=== PATIENT | female | born 1975 | race Caucasian/White ===

== ENCOUNTER 2020-03-25 08:15 | Emergency (ER) | payer MEDICAID, SELFPAY ==
[2020-03-25 08:29] VITALS: BP 161/78; PULSE 88; RESP 22; TEMP 36.4; O2SAT 98; BMI 26.0
--- NOTE | 2020-03-25 08:33 | XR_ITS ---
EXAMINATION: XR CHEST CLINICAL INFORMATION: Cough for 4 days. Possible pneumonia COMPARISON: CT abdomen 03/04/2017 TECHNIQUE: Frontal view of the chest was obtained. FINDINGS: There is no airspace consolidation, vascular congestion, or effusion. No pleural reaction. There is a calcified granuloma overlying the right anterior sixth rib, in retrospect stable from CT abdomen 03/04/2017. The heart is normal in size. The costophrenic sulci are clear. The hilar and mediastinal contours and bony structures are unremarkable. IMPRESSION: 1. Lungs clear. No acute intrathoracic disease. 2. Incidental calcified granuloma right lower zone similar to CT abdomen 2017.
--- NOTE | 2020-03-25 08:36 | ED_ITS ---
HPI - URI/Sore Throat General Chief Complaint: Upper Respiratory Symptoms Stated Complaint: cold symptoms Time Seen by Provider: 03/25/20 08:33 History of Present Illness HPI Narrative: Patient presents to ED for runny nose, coughing, chills, and bilateral ear pain for 4 days. Patient states no one at home having similar symptoms. 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 patient denies any chest pain or shortness of breath MD elicited complaint: cough, rhinorrhea and sinus pain Onset (ago): day(s) ( Four days) Related Data Previous Rx's Medication Instructions Recorded benzonatate [Tessalon Perles] 100 mg PO TID #15 cap 03/25/20 ibuprofen 400 mg PO Q6H PRN #28 tab 03/25/20 Allergies Allergy/AdvReac Type Severity Reaction Status Date / Time No Known Allergies Allergy Unverified 02/29/20 16:44 [No Known Allergies*] Review of Systems Review of Systems: Yes all other systems are reviewed and are negative Constitutional: Constitutional: Reports chills, Denies daytime sleepiness, Reports fatigue, Denies frequent falls, Denies headache(s), Denies increased appetite, Denies lethargy, Denies malaise, Denies night sweats, Denies snoring, Denies stops breathing during sleep, Denies weakness and Denies weight loss ENT: Reports system reviewed and no additional complaints, except as documented, Denies dysphagia, Denies headache(s), Denies epistaxis and Reports mouth pain Cardiovascular: Cardiovascular: Reports no additional cardiovascular complaints, Denies chest pain, Denies chest pain at rest, Denies chest pain with activity, Denies dyspnea, Denies dyspnea on exertion, Denies orthopnea and Denies paroxysmal nocturnal dyspnea Respiratory: Respiratory: Reports no additional respiratory complaints, Denies dyspnea, Denies dyspnea on exertion and Denies snoring Gastrointestinal: Gastrointestinal: Reports no additional gastrointestinal complaints, Denies abdominal pain, Denies melena, Denies tenesmus, Denies change in stool character, Denies coffee ground emesis, Denies dysphagia, Denies excessive flatus, Denies early satiety, Denies fecal incontinence and Denies diarrhea Musculoskeletal: Musculoskeletal: Reports no additional musculoskeletal complaints Neurologic: Reports system reviewed and no additional complaints, except as documented, Denies behavioral changes, Denies frequent falls, Denies headache(s) and Denies weakness Psychiatric: Psychiatric: Reports no additional psychiatric complaints, Denies anxiety and Denies behavioral changes Endocrine: Endocrine: Reports fatigue PMFSH Past Medical History Medical History (Updated 03/25/20 @ 09:28 by JORDAN Palma) No known health problems Social History Social History Smoking Status: Current every day smoker Smoked in Last 30 Days: Yes Use of substances other than those prescribed or required for medical reasons: No Advance Directives: No Advance Directives Information Provided: Yes Physical Exam Vital Signs: Vital Signs: Vital Signs Temp Pulse Resp BP Pulse Ox 03/25/20 08:29 97.6 F 88 22 H 161/78 H 98 Body Mass Index 26.0 Const: General: cooperative, healthy appearing and comfortable Orientation/consciousness: patient oriented x3 HENMT: Head: Yes normal to inspection Ears: hearing grossly normal bilaterally, external ears normal, TM's normal bilaterally, EAC's normal and no periauricular adenopathy General nose exam: Normal external nose present Face and sinus: Yes normal facial exam and Yes sinuses nontender Mouth: Normal oral and palatal mucosa present Throat: No posterior oropharynx normal, Yes tonsils normal, No abnormal tonsil, No peritonsillar mass, No posterior oropharynx abnormal and No tonsils absent Eyes: General: appearance normal, both eyes and all related structures Neck: Neck: Yes normal visual inspection, Yes full ROM, Yes no lymphadenopathy, Yes no meningeal signs, No positive Brudzinski's sign and No positive Kernig's sign Chest: Chest palpation & inspection: normal inspection of the chest and normal palpation of entire chest wall Resp: Effort & Inspection: normal respiratory effort, able to speak in complete sentences, normal respiratory pattern, no audible wheezes, Actively coughing, no grunting, not labored, no nasal flaring, no paradoxical thoraco- abdom movements and no pursed lip breathing Auscultation: clear to auscultation bilaterally Cardio: Jugular venous distension: no JVD Rate: regular rate Rhythm: regular rhythm Heart sounds: S1 normal heart sound present and S2 normal heart sound present GI: Inspection: Yes normal to inspection, No abdominal wall ecchymosis, No incision, No obesity and No scaphoid Palpation (GI): Soft to palpation, not firm, nontender, no guarding, not rigid, hepatosplenomegaly present and No Carnett's sign positive Percussion: Yes normal to percussion : General: No CVA tenderness and Yes no CVA tenderness Back/Spine/Pelvis: Back: no CVA tenderness, No CVA tenderness and No back tenderness Skin: General skin exam: no rashes or lesions noted Neuro: General: patient oriented x3, no meningeal signs and CN's II-XI intact bilaterally Extrem: General: Yes normal to inspection Psych: Appearance: grossly normal and well kempt Course Course Course Narrative: patient history physical exam indicates URI. Patient had chest x-ray to rule out pneumonia. 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 Reevaluation(s) Reevaluation #1: Chest x-ray negative for pneumonia. Patient is safe for discharge. COVID-19 swab pending. Patient educated on self isolation Time: 09:26 MDM - URI/Sore Throat MDM Narrative Medical decision making narrative: diagnosis URI. Patient will be discharged with Tessalon Perles and naproxen. Chest x-ray negative for pneumonia Differential Diagnosis Differential diagnosis: Likely upper respiratory infection Discharge Plan Discharge Clinical Impression: Upper respiratory infection Qualifiers: URI type: unspecified viral URI Qualified Code(s): J06.9 - Acute upper respiratory infection, unspecified Patient Disposition: Home, Self-Care Instructions: Upper Respiratory Infection (ED) Additional Instructions: return to the ED for any chest pain, shortness of breath, weakness, intractable fever, chills, abdominal pain, nausea, vomiting, diarrhea, or any other concerning symptoms. recommend 14 days self isolation if Covid swab come back positive. Prescriptions: New benzonatate [Tessalon Perles] 100 mg capsule 100 mg PO TID Qty: 15 RF: 0 ibuprofen 400 mg tablet 400 mg PO Q6H PRN (Reason: pain) Qty: 28 RF: 0 Referrals: Lukasz Fermin NP [Primary Care Provider] - 2 days ( URI. Chest x-ray normal. Covid swab is pending) Stand Alone Forms: Work/School Release Interventions: ED Discharge Assessment Last Done: 03/25/20 09:45 Discharge Date/Time: 03/25/20 09:45 Print Language: Chinese
== END 2020-03-25 09:45 | disposition home or self-care (01) ==
PROVIDERS: Physician Assistant; Emergency Provider Emergency Medicine; PCP Nurse Practitioner Family
DX: J06.9 Acute upper respiratory infection, unspecified (principal); Z20.828 Contact with and (suspected) exposure to other viral communicable diseases; F17.200 Nicotine dependence, unspecified, uncomplicated
CPT/HCPCS: 71045; 87635; 99284